=== PATIENT | male | born 1945 | race Caucasian/White ===

== ENCOUNTER 2021-11-13 03:44 | Day surgery (SDC) | payer MEDICARE, BC, SELFPAY ==
[2021-11-13] VITALS (26 sets, daily range): BP systolic 100–205; BP diastolic 67–106; PULSE 59–72; RESP 8–24; TEMP 36.1–36.7; O2SAT 92–100; BMI 28.0
[2021-11-13] MEDS: Normal Saline 1,000 ML 125 ML IV (03:45)
--- NOTE | 2021-11-13 03:45 | RT.EKG_ITS ---
APPROVED REPORT Exam: Resting ECG Reason for Exam: chest pain Patient Location: E HR:72 bpm ECG Measurements Heart Rate 72 AXIS RI 173 P 37 QRSd 99 QRS -74 QT 418 T 31 QTc 457 Conclusion Sinus rhythm Left anterior fascicular block.
--- NOTE | 2021-11-13 03:45 | DI.CT_ITS ---
Exam(s) CT ABDOMEN PELVIS W EXAM: CT ABDOMEN PELVIS W CLINICAL HISTORY: RUQ pain, nausea. TECHNIQUE: Imaging Protocol: Axial computed tomography images with coronal and sagittal reformatted images were created and reviewed CONTRAST MATERIAL: Intravenous: Omnipaque 100cc Oral: None COMPARISON: No exams were available for comparison FINDINGS: VISUALIZED LUNG BASES: No nodules nor pleural effusions evident. ABDOMEN: There is no ascites. LIVER: Mild steatosis. Some fatty parenchymal sparing around the gallbladder bed. GALLBLADDER/BILIARY: There is cholelithiasis. There is at least 1 2 centimeter gallstone. Mild gall bladder wall edema. No pericholecystic fluid. CBD is not dilated no dilated intrahepatic ducts. PANCREAS: No evidence of pancreatic mass nor dilatation of the pancreatic duct. SPLEEN: Spleen is not enlarged. No obvious intrasplenic lesions. Splenic and portal veins are paten t. ADRENALS: There is a small nodule in the right adrenal gland which measures 6 x 6 millimeters. Proba power incidental adenoma. Left adrenal gland unremarkable. KIDNEYS:Right kidney unremarkable. There is a small cyst in the lateral cortex of the left kidney me asuring 9 x 8 millimeters. No solid renal masses. No calculi nor hydronephrosis.. ABDOMINAL AORTA: Abdominal aorta is not enlarged. LYMPH NODES:There is no retroperitoneal nor paraaortic adenopathy. ABDOMINAL WALL: No evidence of significant anterior abdominal wall nor inguinal hernia. GI: There is no evidence of bowel obstruction, free air, nor abscess. PELVIS: GI: No evidence of appendicitis.There is sigmoid diverticulosis without evidence of obvious acute div erticulitis. LYMPH NODES: There is no intrapelvic nor inguinal adenopathy. REPRODUCTIVE: Prostate gland is enlarged and lobulated with small internal calcifications. Prostate gland significantly impresses and/or invades the bladder base. The urinary bladder is not overly dis tended. URINARY BLADDER: Borderline wall thickening. Impression upon and/or invasion of the base of the blad aleksandar by are grossly enlarged prostate gland. OSSEOUS: No significant osseous lesions. IMPRESSION: 1. Cholelithiasis. There is at least 1 large 2 cm gallstone. Borderline wall thickening. CBD and i ntrahepatic ducts are not dilated. Recommend follow-up ultrasound. 2. Grossly enlarged prostate gland with heterogeneous enhancement and faint internal calcifications. This enlarged prostate gland cyst is lobulated and impresses upon/or invades base of the bladder. 3. Small right adrenal nodule with measurements as above. This is probably an incidental adenoma. L eft adrenal gland unremarkable. 4. Single small benign cyst in the left kidney. RADIATION DOSE DELIVERED: 946.97mGy.cm Total DLP DATA REPOSITORY: All CT scans at this facility are submitted to the National Radiology Data Registry (NRDR) Dose Index Registry (DIR) with the [employer] ([employer]). RADIATION OPTIMIZATION: All CT scans at this facility use at least one of these dose optimization te chniques: automated exposure control; mA and/or kV adjustment per patient size (includes targeted exa ms where dose is matched to clinical indication); or iterative reconstruction.
--- NOTE | 2021-11-13 04:07 | ED.GENADUL_ITS ---
Discharge Plan Disposition Patient Disposition: [facility] INPATIENT Condition: Stable Discharge Details Clinical Impression: Acute cholecystitis Attending Provider: Cortney Flores Primary Care Provider: Unknown,Unknown Discharge Data Discharge Date/Time-TO BE ENTERED AT DEPARTURE: 11/13/21 09:15 Medical Decision Making 76-year-old male presents from home with complaint of 4 to 5 hours of right upper quadrant abdominal pain that radiates to his back. Previous episodes month both occurred after eating [place] food. States she had one episode of emesis at home. He has otherwise been well. He has not been immunized against COVID-19, stating I do not believe in it. Patient arrives afebrile, and pain with hypertension. Differential diagnosis includes biliary colic, pancreatitis, choledocholithiasis. Pt had IV esta blished, screening labs obtained and given parenteral fluids, antiemetic, analgesia. Laboratories note a white count of 11, hematocrit 47, platelets 428. Electrolytes unremarkable. AST 13, ALT 19, total bili 0.3. Lipase is 92. CT formal read is pending. There is evidence of large gallstone and ultrasound has been ordered. Case will be signed out to Dr. Alvarez pending review of the patient's imaging studies. 11/13/21 Dr. Alvarez 0730 --please see Dr. Mccarthy's note for initial presentation, exam and plan. Case endorsed to follow-up on ultrasound results and final disposition. Patient assessed by me at bedside. He endorses pain after midnight after eating [place] food last night. Similar episode of pain last week after eating. Patient appears uncomfortable but nontoxic. He has significant tenderness in the right upper quadrant. There is no rigidity or guarding. Labs reviewed. White blood cell count 11 with left shift. Normal electrolytes. Lipase normal. Urinalysis no evidence of infection. CT notes cholelithiasis with pericholecystic fluid suggestive of acute cholecystitis. Ultrasound completed and appears consistent with acute cholecystitis. Case discussed with Dr. Flores who will plan to take patient to the OR. A dose of Rocephin and Flagyl ordered. Plan discussed with patient and he is agreeable. Medical Records Medical records reviewed: Yes I reviewed the patient's medical records. Imaging Data Radiologic Study: Radiologist's impression: ?CT ABDOMEN ? PELVIS W CLINICAL HISTORY: ? RUQ pain, nausea. ? TECHNIQUE:? Imaging Protocol: Axial computed tomography images with coronal and sagittal reformatted images were created and reviewed CONTRAST MATERIAL:? Intravenous: Omnipaque 100cc Oral: None COMPARISON:? No exams were available for comparison FINDINGS: VISUALIZED LUNG BASES: No nodules nor pleural effusions evident.? ABDOMEN: There is no ascites. LIVER: Mild steatosis.? Some fatty parenchymal sparing around the gallbladder bed.? GALLBLADDER/BILIARY: There is cholelithiasis.? There is at least 1 2 centimeter gallstone.? Mild gallbladder wall edema.? No pericholecystic fluid.? CBD is not dilated no dilated intrahepatic ducts. PANCREAS: No evidence of pancreatic mass nor dilatation of the pancreatic duct.? SPLEEN: Spleen is not enlarged.? No obvious intrasplenic lesions.? Splenic and portal veins are patent. ADRENALS: There is a small nodule in the right adrenal gland which measures 6 x 6 millimeters.? Probably incidental adenoma.? Left adrenal gland unremarkable. KIDNEYS:Right kidney unremarkable.? There is a small cyst in the lateral cortex of the left kidney measuring 9 x 8 millimeters.? No solid renal masses.? No calculi nor hydronephrosis.. ABDOMINAL AORTA: Abdominal aorta is not enlarged. LYMPH NODES:There is no retroperitoneal nor paraaortic adenopathy. ABDOMINAL WALL: No evidence of significant anterior abdominal wall nor inguinal hernia. GI: There is no evidence of bowel obstruction, free air, nor abscess. PELVIS:? GI: No evidence of appendicitis.There is sigmoid diverticulosis without evidence of obvious acute diverticulitis. LYMPH NODES: There is no intrapelvic nor inguinal adenopathy. REPRODUCTIVE: Prostate gland is enlarged and lobulated with small internal calcifications.? Prostate gland significantly impresses and/or invades the bladder base.? The urinary bladder is not overly distended. URINARY BLADDER: Borderline wall thickening.? Impression upon and/or invasion of the base of the bladder by are grossly enlarged prostate gland. OSSEOUS: No significant osseous lesions. IMPRESSION: 1. Cholelithiasis.? There is at least 1 large 2 cm gallstone.? Borderline wall thickening.? CBD and intrahepatic ducts are not dilated.? Recommend follow-up ultrasound. 2. Grossly enlarged prostate gland with heterogeneous enhancement and faint internal calcifications.? This enlarged prostate gland cyst is lobulated and impresses upon/or invades base of the bladder. 3. Small right adrenal nodule with measurements as above.? This is probably an incidental adenoma.? Left adrenal gland unremarkable. 4. Single small benign cyst in the left kidney. Lab Data Lab results reviewed: Yes I reviewed the patient's lab results. Labs: Laboratory Tests Range/Units 11/13/21 11/13/21 11/13/21 04:00 04:06 04:06 WBC (4.4-10.8) 10^3/uL 11.23 H RBC (4.36-5.78) 10^6/uL 4.89 Hgb (13.5-17.5) g/dL 15.3 Hct (40.0-50.0) % 47.7 MCV (80-95) fL 97.5 H MCH (27.0-33.0) pg 31.3 MCHC (32.0-36.0) % 32.1 RDW (11.8-14.1) % 12.7 Plt Count (130-400) 10^3/uL 428 H MPV (8.0-11.0) fL 9.3 Immature Gran % 1.0 Neutrophils % 78.7 Lymphocytes % 11.3 Monocytes % 7.7 Eosinophils % 1.0 Basophils % 0.3 Nucleated RBC % % 0 Absolute Neutrophils (1.2-6.7) 10^3/uL 8.84 H Absolute Lymphocytes (1.2-3.4) 10^3/uL 1.27 Absolute Monocytes (0.1-0.8) 10^3/uL 0.86 H Absolute Eosinophils (0.0-0.7) 10^3/uL 0.11 Absolute Basophils (0.0-0.2) 10^3/uL 0.03 Sodium (136-145) mmol/L 140 Potassium (3.5-5.1) mmol/L 4.1 Chloride (98-107) mmol/L 103 Carbon Dioxide (21.0-32.0) mmol/L 29.3 Anion Gap (3-11) mmol/L 7.7 BUN (7-18) mg/dL 12 Creatinine (0.70-1.30) mg/dL 1.0 Estimated GFR/1.73 m2 (mL/min/1.73m2) >= 60.00 Glucose (74-106) mg/dL 167 H Calcium (8.5-10.1) mg/dL 8.6 Magnesium (1.8-2.4) mg/dL 2.3 Total Bilirubin (0.2-1.0) mg/dL 0.3 AST (15-37) U/L 13 L ALT (16-63) U/L 19 Alkaline Phosphatase (46-116) U/L 75 Troponin I (<or=60) ng/L < 50 Total Protein (6.4-8.2) g/dL 7.6 Albumin (3.4-5.0) g/dL 3.9 Lipase (73-393) U/L 92 Urine Color (Yellow) Yellow Urine Clarity (Clear) Cloudy Urine pH (5-8) 8.5 H Ur Specific [place] (1.005-1.025) 1.020 Urine Protein (Negative) mg/dL Negative Urine Ketones (Negative) mg/dL Negative Urine Blood (Negative) Negative Urine Nitrite (Negative) Negative Urine Bilirubin (Negative) Negative Urine Urobilinogen (Up TO 0.2) EU/dL 0.2 Ur Leukocyte Esterase (Negative) Negative Urine Glucose (Negative) mg/dL 100 COVID-19 Source SARS-CoV-2 (PCR) (Negative) Range/Units 11/13/21 09:40 WBC (4.4-10.8) 10^3/uL RBC (4.36-5.78) 10^6/uL Hgb (13.5-17.5) g/dL Hct (40.0-50.0) % MCV (80-95) fL MCH (27.0-33.0) pg MCHC (32.0-36.0) % RDW (11.8-14.1) % Plt Count (130-400) 10^3/uL MPV (8.0-11.0) fL Immature Gran % Neutrophils % Lymphocytes % Monocytes % Eosinophils % Basophils % Nucleated RBC % % Absolute Neutrophils (1.2-6.7) 10^3/uL Absolute Lymphocytes (1.2-3.4) 10^3/uL Absolute Monocytes (0.1-0.8) 10^3/uL Absolute Eosinophils (0.0-0.7) 10^3/uL Absolute Basophils (0.0-0.2) 10^3/uL Sodium (136-145) mmol/L Potassium (3.5-5.1) mmol/L Chloride (98-107) mmol/L Carbon Dioxide (21.0-32.0) mmol/L Anion Gap (3-11) mmol/L BUN (7-18) mg/dL Creatinine (0.70-1.30) mg/dL Estimated GFR/1.73 m2 (mL/min/1.73m2) Glucose (74-106) mg/dL Calcium (8.5-10.1) mg/dL Magnesium (1.8-2.4) mg/dL Total Bilirubin (0.2-1.0) mg/dL AST (15-37) U/L ALT (16-63) U/L Alkaline Phosphatase (46-116) U/L Troponin I (<or=60) ng/L Total Protein (6.4-8.2) g/dL Albumin (3.4-5.0) g/dL Lipase (73-393) U/L Urine Color (Yellow) Urine Clarity (Clear) Urine pH (5-8) Ur Specific [place] (1.005-1.025) Urine Protein (Negative) mg/dL Urine Ketones (Negative) mg/dL Urine Blood (Negative) Urine Nitrite (Negative) Urine Bilirubin (Negative) Urine Urobilinogen (Up TO 0.2) EU/dL Ur Leukocyte Esterase (Negative) Urine Glucose (Negative) mg/dL COVID-19 Source Nasal/Nares SARS-CoV-2 (PCR) (Negative) Negative HPI General Mode of arrival: ambulatory . Date/Time Provider Initiated Documentation: 11/13/21 03:45 . Limitations to Documentation: no limitations . Information obtained by: patient . History of Present Illness 76 year old M p resents to the emergency department with the chief complaint of Right upper quadrant pain began a few hours after eating, described as severe and similar to prior episodes, Quality is described as constant, and is localized to the abdomen. Patient reports radiation to back. Patient started experiencing this hour(s) and it has been constant. improves with No relieving factors improve symptom(s), No exacerbating factors reported . Patient notes fever/chills, loss of appetite and nausea/vomiting; denies chest pain, cough and shortness of breath. Patient did receive the following treatments prior to arrival, none Related Data Home Medications Medication Instructions Recorded Confirmed multivitamin 1 tab PO DAILY 11/13/21 11/13/21 Allergies Allergy/AdvReac Type Severity Reaction Status Date / Time No Known Allergies Allergy Unverified 11/13/21 09:24 General Stated Complaint: Abd Prob SARAH: 3 Review of Systems Narrative: No recent illness. Not immunized against COVID-19. 8 systems were reviewed and otherwise negative. PFSH All Active Problems Acute cholecystitis (Acute) Medical History No significant past medical history Surgical History Lipoma Resection L chest Social History Smoking/Tobacco Use Status: Never Smoking risk assessment performed?: Yes Alcohol Intake: current Alcohol Intake frequency: 0-2 drinks per day Alcohol type: beer Drug use: Never Substance use type: does not use Do you feel safe at home: Yes Exam Narrative Exam Narrative: GEN: awake, alert, oriented 3. Pleasant, well groomed, interactive. HEAD: Normocephalic, atraumatic ENT: Mucous membranes moist, oropharynx unremarkable, External ear exam un remarkable EYES: PERRL, EOMI NECK: Full ROM, no LONA, no menigismus CHEST/RESP: Nontender, clear to auscultation bilateral, no wheeze/rhonchi/rales CARDIOVASCULAR: RRR, no murmur, rub juan. 2+ Rad pulse bilateral ABDOMEN: Soft, tender in the right upper quadrant, no mass. +Bowel sounds EXT: Full ROM, no edema, no rash Neuro: Grossly normal neurologic exam, conversant, interactive. Psych: Speech fluent, thoughts congruent, affect normal Course Vital Signs Vital signs: Vital Signs Temperature 36.7 C 11/13/21 03:47 Pulse 70 11/13/21 03:47 Respiratory Rate 22 11/13/21 03:47 Blood Pressure 205/106 H 11/13/21 03:47 Pulse Oximetry 100 11/13/21 03:47 Temperature 36.7 C 11/13/21 03:47 Temperature Source Skin 11/13/21 03:47 Pulse 70 11/13/21 03:47 Respiratory Rate 22 11/13/21 03:47 Respiratory Effort 11/13/21 03:51 Blood Pressure 205/106 H 11/13/21 03:47 Blood Pressure Position Supine 11/13/21 03:47 Pulse Oximetry 100 11/13/21 03:47 Oxygen Delivery Method Room Air 11/13/21 03:47 Oxygen Flow Rate 0 11/13/21 03:47 Pain Level 6 11/13/21 03:47 Sign Out Sign Out Data: Sign Out Comment: RUQ pain, CT/US pending Last updated by Isael Mccarthy MD at 11/13/21 06:42
[2021-11-13] MEDS: Ondansetron 4 MG/2 ML VIAL IVP ×2 (04:10→11:27)
[2021-11-13] MEDS: HYDROmorphone 2 MG/ML VIAL 1 MG IVP (04:12)
[2021-11-13 04:23] LABS: Abs Immature Grans 0.11 10^3/uL (0.0-0.06); Absolute Basophil Count 0.03 10^3/uL (0.0-0.2); Absolute Eosinophil Count 0.11 10^3/uL (0.0-0.7); Absolute Lymphocyte Count 1.27 10^3/uL (1.2-3.4); Absolute Monocyte Count 0.86 10^3/uL (0.1-0.8); Basophils % 0.3; HCT 47.7 % (40.0-50.0); HGB 15.3 g/dL (13.5-17.5); Lymphocytes % 11.3; MCH 31.3 pg (27.0-33.0); MCHC 32.1 % (32.0-36.0); MCV 97.5 fL (80-95); MPV 9.3 fL (8.0-11.0); Monocytes % 7.7; Neutrophils % 78.7; Nucleated RBC 0 %; Platelet Count 428 10^3/uL (130-400); RBC 4.89 10^6/uL (4.36-5.78); RDW 12.7 % (11.8-14.1); RDW-SD 45.7 fL; WBC 11.23 10^3/uL (4.4-10.8)
[2021-11-13 04:37] LABS: Absolute Neutrophil Count 8.84 10^3/uL (1.2-6.7)
[2021-11-13 04:38] LABS: Bilirubin Negative (Negative); Blood Negative (Negative); Clarity Cloudy (Clear); Glucose 100 mg/dL (Negative); Ketones Negative (Negative); Leukocyte Esterase Negative (Negative); Nitrite Negative (Negative); Urobilinogen 0.2 EU/dL (Up TO 0.2); pH 8.5 (5-8)
[2021-11-13 04:56] LABS: ALT 19 U/L (16-63); AST 13 U/L (15-37); Albumin 3.9 g/dL (3.4-5.0); Alkaline Phosphatase 75 U/L (46-116); Anion Gap 7.7 mmol/L (3-11); BUN 12 mg/dL (7-18); Bilirubin, Total 0.3 mg/dL (0.2-1.0); CO2 29.3 mmol/L (21.0-32.0); Calcium 8.6 mg/dL (8.5-10.1); Chloride 103 mmol/L (98-107); Glucose 167 mg/dL (74-106); Lipase 92 U/L (73-393); Magnesium 2.3 mg/dL (1.8-2.4); Potassium 4.1 mmol/L (3.5-5.1); Sodium 140 mmol/L (136-145); Total Protein 7.6 g/dL (6.4-8.2); Troponin I < 50 ng/L (<or=60)
--- NOTE | 2021-11-13 05:45 | DI.US_ITS ---
Exam(s) US ABDOMEN LIMITED EXAM: US ABDOMEN LIMITED CLINICAL HISTORY: RUQ pain, gallstone TECHNIQUE: Ultrasound abdomen performed using standard protocol. COMPARISON: CT CT ABDOMEN PELVIS W from 11/13/2021 FINDINGS: There is no ascites evident. LIVER: There is hyperechoic indicating steatosis. There are no discrete focal lesions. No obvious d ilated intrahepatic ducts. GALLBLADDER/BILIARY: Cholelithiasis. There is a large gallstone lodged in the gallbladder neck and t here is some wall edema, findings consistent with acute cholecystitis. The common hepatic duct isnot dilated, measuring 4mm at the level of subhash hepatis. PANCREAS: There is no evidence of pancreatic mass nor dilatation of the pancreatic duct. RIGHT KIDNEY:No evidence of solid mass, calculus, nor hydronephrosis. No cortical cysts evident. IMPRESSION: 1. Cholelithiasis and evidence of acute cholecystitis. CBD is not dilated. 2. Hepatic steatosis. No discrete focal hepatic lesions. 3. There is no ascites. DATA REPOSITORY:
[2021-11-13] MEDS: HYDROmorphone 2 MG/ML VIAL 0.5 MG IVP ×3 (06:10→11:27)
--- NOTE | 2021-11-13 07:07 | DI.VRAD_ITS ---
PROCEDURE INFORMATION: Exam: CT Abdomen And Pelvis With Contrast Exam date and time: 11/13/2021 5:46 AM Age: 76 years old Clinical indication: Nausea and vomiting; Abdominal pain; Localized; Right upper quadrant (ruq); Additional info: Ruq pain, nausea and emesis TECHNIQUE: Imaging protocol: Computed tomography of the abdomen and pelvis with contrast. Radiation optimization: All CT scans at this facility use at least one of these dose optimization techniques: automated exposure control; mA and/or kV adjustment per patient size (includes targeted exams where dose is matched to clinical indication); or iterative reconstruction. Contrast material: OMNI 350; Contrast volume: 100 ml; Contrast route: INTRAVENOUS (IV); COMPARISON: No relevant prior studies available. FINDINGS: Lungs: Mild dependent basilar atelectasis. Pleural spaces: Chronic appearing basilar pleural and parenchymal changes. Mediastinal space: Patulous distal esophagus. Liver: Hepatomegaly. Fatty Infiltration. Gallbladder and bile ducts: Cholelithiasis within a mildly distended gallbladder with borderline wall thickening and suspected pericholecystic fluid suggesting acute cholecystitis. Nuclear medicine HIDA scan and/or gallbladder ultrasound may be of benefit in evaluation if indicated. Pancreas: No enlargement. No mass. No ductal dilatation. Spleen: Normal size. No mass. Adrenal glands: No significant mass. No enlargement. No hemorrhage. Subcentimeter left renal cyst, benign features, requires no further evaluation. Kidneys and ureters: No mass. No hydronephrosis. No hydroureter or ureterolithiasis. Stomach and bowel: Moderate to advanced diverticulosis without acute diverticulitis. No colitis. Mild fecal load proximally. Fluid-filled mildly distended stomach without wall thickening or obvious outlet obstruction, recent ingestion versus gastroparesis. Small bowel normal caliber without mechanical obstruction, pneumatosis or free air. Appendix: Normal appearance without acute inflammation. Intraperitoneal space: No significant free fluid. No free intraperitoneal air. Vasculature: Aorta normal caliber without aneurysm. Aortic atherosclerotic calcification. Lymph nodes: No significant lymphadenopathy demonstrated. Urinary bladder: Borderline bladder wall thickening. Impression upon and/or invasion of the base of the bladder by a grossly enlarged prostate. Reproductive: Grossly enlarged prostate with slightly heterogeneous enhancement and faint internal calcifications. Impression upon and/or invasion base of the bladder. Bones/joints: Mild degenerative changes noted throughout the spine. No fracture or subluxation. No lytic or blastic lesion. Soft tissues: Small uncomplicated fat containing umbilical hernia. Uncomplicated fat containing inguinal hernias, right larger than left. IMPRESSION: 1. Cholelithiasis within a mildly distended gallbladder with borderline wall thickening and suspected pericholecystic fluid suggesting acute cholecystitis. Nuclear medicine HIDA scan and/or gallbladder ultrasound may be of benefit in evaluation if indicated. 2. Fluid-filled distended stomach without wall thickening or outlet obstruction. Recent ingestion versus gastroparesis. 3. Grossly enlarged prostate with slightly heterogeneous enhancement and faint internal calcifications. Impression upon and/or invasion base of the bladder. 4. Nonemergent findings as described above. Dictated and Authenticated by: Jose Sutton MD. Ordering:BUDDY Kirkland MD
[2021-11-13] MEDS: cefTRIAXone 1 GM/50 ML BAG IVPB (08:07)
[2021-11-13] MEDS: metroNIDAZOLE 500 MG/100 ML BAG 100 MG IVPB (08:42)
[2021-11-13 09:48] LABS: Source Nasal/Nares
[2021-11-13] MEDS: Normal Saline 1,000 ML 75 ML IV (10:06)
--- NOTE | 2021-11-13 10:18 | ANES.PREOP_ITS ---
General Info Date of Service Date Performed: 11/13/21 Height: 5 ft 9 in Weight: 86.183 kg Body Mass Index (BMI): 28.0 Surgical Procedure: Operation Date: 11/13/21 12:25 Proposed Procedure Side Surgeon p Cholecystectomy Laparoscopic Cortney Flores DO Meds Allergies and Home Medications Allergies Allergy/AdvReac Type Severity Reaction Status Date / Time No Known Allergies Allergy Unverified 11/13/21 09:24 Home Medication Medication Instructions Recorded multivitamin 1 tab PO DAILY 11/13/21 Current Visit Medications: Current Medications Generic Name Dose Route Start Last Admin Trade Name Freq PRN Reason Stop Dose Admin Enoxaparin Sodium 40 mg 11/13/21 09:00 Enoxaparin 40 Mg/0.4 Ml Syr SC Q24H ELIZABETH Sodium Chloride 1,000 mls @ 125 mls/hr 11/13/21 04:00 11/13/21 06:49 Saline 1000ml Bag IV 0 mls/hr INFUSION ELIZABETH Infusion Sodium Chloride 500 mls @ 0 mls/hr 11/13/21 08:25 Saline 500ml Bag IV PRN PRN As Directed Sodium Chloride 1,000 mls @ 75 mls/hr 11/13/21 08:30 11/13/21 10:06 Saline 1000ml Bag IV 75 mls/hr INFUSION ELIZABETH Administration Acetaminophen 1,000 mg in 100 mls @ 400 mls/hr 11/13/21 08:25 Ofirmev IVPB Q8H PRN PRN IV Miscellaneous Supplies 1 each 11/13/21 04:00 Iv Access IV DIRECTED [facility] IV Miscellaneous Supplies 1 each 11/13/21 08:30 Iv Access IV DIRECTED ELIZABETH Morphine Sulfate 2 mg 11/13/21 08:25 Morphine 2 Mg/Ml Syr IVP Q1H PRN PRN Ondansetron HCl 4 mg 11/13/21 08:25 Ondansetron 4 Mg/2 Ml Vial IVP Q4H PRN PRN Sodium Chloride 0 ml 11/13/21 03:51 Normal Saline Flush 10 Ml Syr IVP PRN PRN Sodium Chloride 0 ml 11/13/21 08:25 Normal Saline Flush 10 Ml Syr IVP PRN PRN PFSH Active Problems Active Problems: Problem Status Onset Code Acute cholecystitis K81.0 Medical History Medical History No significant past medical history Surgical History Surgical History Lipoma Resection L chest Tobacco Smoking/Tobacco Use Status: Never Alcohol Alcohol Intake: current Alcohol intake frequency: 0-2 drinks per day Alcohol type: beer Substance Use Substance use: Never Substance use type: does not use Vital Signs and Lab Results Vital Signs Most Recent Vital Signs in EMR: Most Recent Vital Signs Temp Pulse Resp BP Pulse Ox 36.4 C L 72 18 117/89 95 11/13/21 09:26 11/13/21 09:26 11/13/21 09:26 11/13/21 09:26 11/13/21 09:26 Lab Results Result Diagrams: 11/13/21 04:06 11/13/21 04:06 Blood Type / Crossmatch: No Data to Display Complete Blood Count: White Blood Count 11.23 10^3/uL (4.4-10.8) H 11/13/21 04:06 11/13/21 Red Blood Count 4.89 10^6/uL (4.36-5.78) 11/13/21 04:06 11/13/21 Hemoglobin 15.3 g/dL (13.5-17.5) 11/13/21 04:06 11/13/21 Hematocrit 47.7 % (40.0-50.0) 11/13/21 04:06 11/13/21 Platelet Count 428 10^3/uL (130-400) H 11/13/21 04:06 11/13/21 Complete Metabolic Panel: Sodium Level 140 mmol/L (136-145) 11/13/21 04:06 11/13/21 Potassium Level 4.1 mmol/L (3.5-5.1) 11/13/21 04:06 11/13/21 Chloride Level 103 mmol/L (98-107) 11/13/21 04:06 11/13/21 Carbon Dioxide Level 29.3 mmol/L (21.0-32.0) 11/13/21 04:06 11/13/21 Blood Urea Nitrogen 12 mg/dL (7-18) 11/13/21 04:06 11/13/21 Creatinine 1.0 mg/dL (0.70-1.30) 11/13/21 04:06 11/13/21 Estimated GFR/1.73 m2 >= 60.00 (mL/min/1.73m2) 11/13/21 04:06 11/13/21 Magnesium Level 2.3 mg/dL (1.8-2.4) 11/13/21 04:06 11/13/21 Calcium Level 8.6 mg/dL (8.5-10.1) 11/13/21 04:06 11/13/21 Albumin 3.9 g/dL (3.4-5.0) 11/13/21 04:06 11/13/21 Glucose Level 167 mg/dL (74-106) H 11/13/21 04:06 11/13/21 Liver Function Panel: Alanine Aminotransferase (ALT/SGPT) 19 U/L (16-63) 11/13/21 04:06 11/13/21 Aspartate Amino Transf (AST/SGOT) 13 U/L (15-37) L 11/13/21 04:06 11/13/21 Coagulation Panel: No Data to Display Cardiac Panel: Troponin I < 50 ng/L (<or=60) 11/13/21 Arterial Blood Gas: No Data to Display Venous Blood Gas: No Data to Display Pancreas Panel: Lipase 92 U/L (73-393) 11/13/21 04:06 11/13/21 Thyroid Panel: No Data to Display Infectious Disease: Coronavirus (COVID-19)(PCR) Pending 11/13/21 09:40 11/13/21 Coronavirus 2019 Source Nasal/Nares 11/13/21 09:40 11/13/21 Blood Cultures: No Data to Display Toxicology Panel: No Data to Display Anesthesia Assessment and Plan Anesthesia History Personal History: No History of Anesthesia Complications Family History: No Family History of Anesthesia Complications Exercise Tolerance Exercise Tolerance: Metabolic Equivalents>4 Cardiac & Pulmonary Exam Cardiac Exam: Normal S1/S2 Heart Sounds Pulmonary Exam: Clear Bilateral Breath Sounds Implantable Cardiac Device Does patient have a Pacemaker or an ICD?: No Airway Exam Known Difficult Airway: No Mallampati Class: 2 Mouth Opening: Normal (> 3cm) Thyromental Distance: Greater than 3 cm Neck Range of Motion: Full ROM Neck Circumference: Normal Teeth Condition: Normal Dentition ASA Classification ASA Score: ASA 2 Emergency Case?: No NPO Status NPO Status: NPO Clears >2 hours, Solids >8 hours Anesthesia Plan Resuscitation Status: Full Code Anesthesia Technique: General Anesthesia Airway Planned: Endotracheal Tube Monitors Used: Standard Monitors
[2021-11-13 10:29] LABS: COVID-19 PCR Negative (Negative)
--- NOTE | 2021-11-13 11:03 | W.PM.HP.N ---
Date of service: 11/13/21 Time of Service: 10:00 Assessment and Plan Assessment and plan (1) Acute cholecystitis: Status: Acute Assessment and plan: -IV Rocephin and Flagyl given by ER -After discussing all risks, benefits and alternatives informed consent was obtained for laparoscopic possible open cholecystectomy today in the operating room. -Further disposition to be determined post operatively. History of Present Illness Consults Consult date: 11/13/21 Requesting physician: Lydia Alvarez Narrative: 76 year old male who developed abdominal pain after eating marshallese food last night for dinner. He reports similar discomfort last week after eating nachos. Denies any fevers or chills, last BM overnight, +nausea/vomiting. Basic labs and CT done in the ER revealed distended gallbladder with pericholecystic fluid. Follow up ultrasound done revealed large gallstone in neck of gallbladder with pericholecystic fluid and normal CBD size. I was asked to see the patient for the above. Review of Systems Constitutional Constitutional: Reports as per HPI and Reports system reviewed and no additional complaints, except as documented ENT Ears, Nose, Mouth, and Throat: Denies dizziness Cardiovascular Cardiovascular: Denies chest pain, Denies syncope, Denies rapid heart rate, Denies lightheadedness and Denies dyspnea Respiratory Respiratory: Denies dyspnea Gastrointestinal Gastrointestinal: Reports abdominal pain, Reports bloating, Denies constipation, Denies diarrhea, Reports nausea and Reports vomiting Neurologic Neurologic: Denies confusion, Denies dizziness and Denies syncope Psychiatric Psychiatric: Denies confusion PFSH All Active Problems Acute cholecystitis (Acute) Medical History No significant past medical history Surgical History Lipoma Resection L chest Social History Smoking/Tobacco Use Status: Never Smoking risk assessment performed?: Yes Alcohol Intake: current Alcohol Intake frequency: 0-2 drinks per day Alcohol type: beer Drug use: Never Substance use type: does not use Do you feel safe at home: Yes Meds Allergies and Home Medications Allergies Allergy/AdvReac Type Severity Reaction Status Date / Time No Known Allergies Allergy Unverified 11/13/21 09:24 Home Medications Medication Instructions Recorded Confirmed Type multivitamin 1 tab PO DAILY 11/13/21 11/13/21 History Exam Const General: cooperative, healthy appearing, comfortable and no acute distress Nutritional Appearance: average body habitus Resp Effort & Inspection: normal respiratory effort, able to speak in complete sentences, no cough and no respiratory distress Cardio Rate: regular rate Rhythm: regular rhythm GI Inspection: normal to inspection and non-distended Palpation: soft, not firm and tender in the epigastrum, in the RUQ and Mensah's sign positive Skin General skin exam: no rashes or lesions noted Neuro General: patient alert, patient awake and patient oriented x3 Results Labs Result diagrams: 11/13/21 04:06 11/13/21 04:06 Labs: Laboratory Results - last 24 hr 11/13/21 11/13/21 11/13/21 04:00 04:06 04:06 WBC 11.23 H RBC 4.89 Hgb 15.3 Hct 47.7 MCV 97.5 H MCH 31.3 MCHC 32.1 RDW 12.7 Plt Count 428 H MPV 9.3 Immature Gran % 1.0 Neutrophils % 78.7 Lymphocytes % 11.3 Monocytes % 7.7 Eosinophils % 1.0 Basophils % 0.3 Nucleated RBC % 0 Absolute Neutrophils 8.84 H Absolute Lymphocytes 1.27 Absolute Monocytes 0.86 H Absolute Eosinophils 0.11 Absolute Basophils 0.03 Sodium 140 Potassium 4.1 Chloride 103 Carbon Dioxide 29.3 Anion Gap 7.7 BUN 12 Creatinine 1.0 Estimated GFR/1.73 m2 >= 60.00 Glucose 167 H Calcium 8.6 Magnesium 2.3 Total Bilirubin 0.3 AST 13 L ALT 19 Alkaline Phosphatase 75 Troponin I < 50 Total Protein 7.6 Albumin 3.9 Lipase 92 Urine Color Yellow Urine Clarity Cloudy Urine pH 8.5 H Ur Specific Ceiba 1.020 Urine Protein Negative Urine Ketones Negative Urine Blood Negative Urine Nitrite Negative Urine Bilirubin Negative Urine Urobilinogen 0.2 Ur Leukocyte Esterase Negative Urine Glucose 100 COVID-19 Source SARS-CoV-2 (PCR) 11/13/21 09:40 WBC RBC Hgb Hct MCV MCH MCHC RDW Plt Count MPV Immature Gran % Neutrophils % Lymphocytes % Monocytes % Eosinophils % Basophils % Nucleated RBC % Absolute Neutrophils Absolute Lymphocytes Absolute Monocytes Absolute Eosinophils Absolute Basophils Sodium Potassium Chloride Carbon Dioxide Anion Gap BUN Creatinine Estimated GFR/1.73 m2 Glucose Calcium Magnesium Total Bilirubin AST ALT Alkaline Phosphatase Troponin I Total Protein Albumin Lipase Urine Color Urine Clarity Urine pH Ur Specific Ceiba Urine Protein Urine Ketones Urine Blood Urine Nitrite Urine Bilirubin Urine Urobilinogen Ur Leukocyte Esterase Urine Glucose COVID-19 Source Nasal/Nares SARS-CoV-2 (PCR) Negative Last Vital Signs Temp 97.5 F L 11/13/21 09:26 Pulse 72 11/13/21 09:26 Resp 18 11/13/21 09:26 BP 117/89 11/13/21 09:26 Pulse Ox 95 11/13/21 09:26
[2021-11-13] MEDS: Bupivacaine LIPOSOME/PF 133 MG/10 ML VIAL IJ (13:20)
[2021-11-13] MEDS: Bupivacaine 0.25% Pres-Free 30 ML VIAL (13:20)
--- NOTE | 2021-11-13 13:44 | GB_PTH ---
PATIENT: Ganga Potts LOC: [facility] U#:[id number] AGE/SX: 76/M ROOM: RE11/13/[address]: Cortney Flores DO : 1945 BED: DIS: 11/13/2021 SPEC #: [id number] RECD: 11/13/21 15:16 STATUS: HYUN REQ #: [id number] CONNIE: 11/13/21 13:[address]: Cortney Flores DEPT: Surgical Specimen RECD BY: Dana Colbert ENTERED: 11/13/21 15:17 SP TYPE: GB OTHR DR: Unknown,Unknown Tissues: 1 - GALLBLADDER Procedures: GROSS AND MICRO LEVEL 3 Comments: [id number]
--- NOTE | 2021-11-13 14:44 | W.PM.OP ---
Date of service: 11/13/21 Time of Service: 13:50 Operative Note Operative Note DATE OF PROCEDURE: 11/13/21 PRE-OP DIAGNOSIS: acute cholecystitis POST-OP DIAGNOSIS: same PROCEDURE: laparoscopic cholecystectomy SURGEON: Cortney Flores FINISHING RANGE OPERATOR: Gerry Saucedo ANESTHESIA TYPE: Local By Surgeon and General LMA/ETT Refer to Anesthesia Record ESTIMATED BLOOD LOSS: 10 Patient was transported to: PACU Patient's condition: stable Implants: none Indications: Patient with severe intractable right upper quadrant pain and image proven evidence of acute cholecystitis with large gallstone Findings: Distended, edematous gallbladder with large gallstone within neck of gallbladder Procedure Description: Patient was taken to the operating room and placed on the operating room table in supine position. After time out procedure performed patient was provided with general anesthesia. He was prepped and draped in the usual surgical fashion. Local anesthesia was infiltrated into the subcutaneous tissues and using an 11 blade scalpel an incision was made in the supraumbilical tissue. Dissection was carried down through the subcutaneous tissues with bovie electrocautery. The fascia was grasped with a gustavo and incised using cautery. Once entry into the abdominal cavity was confirmed his abdomen was insufflated. Three 5mm ports were then placed under direct visualization along the right subcostal margin.The gallbladder was distended and difficult to grasp. A laparoscopic tenaculum was used to grasp the gallbladder which did cause it to spill some dark bile. Once the gallbladder was retracted, the common bile duct was dissected out. The cystic artery appeared to divide around the gallbladder. The duct was clipped and transected and the artery which was split into two separate vessels were also clipped and transected. The gallbladder was removed from the liver bed using electrocautery and subsequently placed into an endocatch bag. The perihepatic space was irrigated thoroughly and suctioned out until effluent became clear. The gallbladder was removed from the supraumbilical incision after lengthening the skin incision slightly to accommodate for the large 4cm gallstone. The fascia was closed in a figure of eight 0-vicryl stitch and skin closed with 4-0 monocryl. Skin glue was then placed over each incision. All needle sponge and instrument counts were correct x2 at the end of the procedure. The patient was subsequently awakened and transferred to PACU in stable condition.
[2021-11-13] MEDS: traMADol 50 MG TAB PO (15:47)
--- NOTE | 2021-11-13 15:47 | W.ANESPOSTOP ---
Postoperative Evaluation Date, Time and Location Date Performed: 11/13/21 Time Performed: 15:47 Patient Location: Day Surgery Unit Vital Signs Most Recent Imported Vital Signs: Most Recent Vital Signs Temp Pulse Resp BP Pulse Ox 36.5 C 67 15 125/72 94 11/13/21 14:55 11/13/21 14:55 11/13/21 14:55 11/13/21 14:55 11/13/21 14:55 Pain Score Most Recent Pain Score: Most Recent Pain Score Pain Level 6 11/13/21 03:47 Assessment Mental Status: Awake (Alert & Oriented to Patient Baseline) Airway and Respiratory Function: Patent airway with normal (patient baseline) respiratory exam Cardiovascular Function: Hemodynamically Stable Hydration Status: Adequately Hydrated Nausea & Vomiting: No Nausea or Vomiting Pain: Pain is tolerable per patient Peripheral Nerve Block: Patient did not receive a nerve block
--- NOTE | 2021-11-13 15:49 | W.PM.DSUDISC ---
Discharge Plan Disposition Patient Disposition: HOME Condition: Stable Discharge Details Attending Provider: Cortney Flores Primary Care Provider: Unknown,Unknown Home Meds and New Rx's Prescriptions: No Action multivitamin Tablet 1 tab PO DAILY 0RF Discharge Instructions Instructions: Laparoscopic Cholecystectomy (DC) Referrals: Yoana Ramos DO [OSTEOPATHIC DOCTOR] - Activity:: light activity x4 weeks Remove Dressings/Wound Care:: 24 hours Shower/Bathe:: 24 hours Diet:: low fat Discharge Orders Discharge Orders: Discharge Order (Routine); Ordered 11/13/21 Ordered By: Cortney Flores DS: Diagnosis Discharge Diagnosis (1) Acute cholecystitis: Status: Acute Asessment and Plan: S/P laparoscopic cholecystectomy, patient may be discharged home.
== END 2021-11-13 17:00 | disposition home or self-care (01) ==
LOC: ER 09:13 → SUR 09:22
PROVIDERS: Emergency Medicine; Emergency Provider Physician Assistant; Visit Provider Surgery
PROC: 0FT44ZZ Resection of Gallbladder, Percutaneous Endoscopic Approach (ICD-10-PCS; CPT 47562; principal; 2021-11-13 12:15)
DX: K80.00 Calculus of gallbladder with acute cholecystitis without obstruction (principal)
CPT/HCPCS: 47562; 36415; 80053; 83690; 87635; 93005; 96361; 96365; 96367; 96375; 96376; 99284; 99285; 74177; 76705; 81003; 83735; 84484; 85025; 88304; 93010; J0131; J0696; J1100; J1885; J2405

== ENCOUNTER → 2021-11-27 14:18 | Outpatient (BNVA) | payer MEDICARE, BC, SELFPAY | PROVIDERS: Visit Provider Physical Therapy Assistant | DX: Z48.815 Encounter for surgical aftercare following surgery on the digestive system (principal); Z90.49 Acquired absence of other specified parts of digestive tract ==

== ENCOUNTER 2022-12-12 13:18 | Emergency (ER) | payer OTHER, SELFPAY ==
[2022-12-12 13:28] VITALS: BP 163/103; PULSE 92; RESP 18; TEMP 36.1; O2SAT 98
--- NOTE | 2022-12-12 14:00 | RT.EKG_ITS ---
APPROVED REPORT Exam: Resting ECG Reason for Exam: chest pain, ? syncope Patient Location: E HR:80 bpm ECG Measurements Heart Rate 80 AXIS VA 161 P 48 QRSd 96 QRS -70 QT 386 T 25 QTc 446 Conclusion Sinus rhythm...normal P axis, V-rate 60- 99 Probable left atrial enlargement...P >50mS, <-0.10mV V1 Left anterior fascicular block...axis(240,-40), init forces inf
--- NOTE | 2022-12-12 14:47 | ED.GENADUL_ITS ---
Discharge Plan Disposition Patient Disposition: Home Condition: Good Discharge Details Clinical Impression: Multiple rib fractures Primary Care Provider: None,None ED Provider: Vikki Colon Home Meds and New Rx's Prescriptions: Continued multivitamin Tablet 1 tab PO DAILY lisinopril 5 mg tablet 10 mg PO DAILY Patient Comments: TAKE ONE TABLET BY MOUTH EVERY DAY FOR BLOOD PRESSURE Discharge Instructions Additional Instructions: Tylenol 650 mg every 6 hours and/or ibuprofen 400 mg every 6 hours as needed for pain. Ice 20 minutes on and 20 minutes off for the next 48 hours, then you may change to heat. Return to ED for fever of 100.4 or above, difficulty breathing, or any other concerns. Call the [facility] tomorrow for follow-up appointment for this week so that he can discuss refill of your cholesterol medicine, changing the lisinopril, and fracture follow-up. Use your incentive spirometer as instructed. Medical Decision Making Although patient likely hit his head last night when he fell, he does not want a head CT. We did discuss his age and several head injury decision rules but he again declines. I did update he and his daughter on his third, fifth, and possibly sixth rib fracture on the left-hand side. I discussed pain medication with the patient. He does not want anything stronger than Tylenol or ibuprofen which he will take at home. He will try ice and switch over to heat later on this week. He will call the [facility] tomorrow for a follow-up appointment for this week to discuss his rib fractures, statin refill, and lisinopril/cough. We will return for difficulty breathing, fever, or any other concerns. HPI General Date/Time Provider Initiated Documentation: 12/12/22 13:45 . HPI Narrative: Patient recalls going to go to sleep and then waking up this morning with the chest pain that radiates from his chest around laterally to his back. He noticed that his chair was tipped over in his bedroom and he presumes that he tripped over it. His daughter reports that he gets up frequently during the night to go to the bathroom. Patient has no recall. His head does not hurt. He has no difficulty breathing or abdominal pain. There is no hip pain. He has no pedal edema or calf pain. He denies any recent illness including fever, chills, or URI symptoms. He has a chronic cough that he attributes to lisinopril. He is supposed to be on a cholesterol medication but ran out. He states [facility] for [facility] on his cholesterol med and to discuss the cough from his lisinopril. Patient tells me his pain is sharp, sharp, and exacerbated by movement. It is not made worse with deep inspiration. It is made worse when he coughs. Related Data Home Medications Medication Instructions Recorded Confirmed multivitamin 1 tab PO DAILY 11/13/21 12/12/22 lisinopril 5 mg tablet 10 mg PO DAILY 12/12/22 12/12/22 Allergies Allergy/AdvReac Type Severity Reaction Status Date / Time No Known Allergies Allergy Unverified 12/12/22 13:35 General Stated Complaint: Chest/Rib SARAH: 3 Review of Systems Constitutional Constitutional: Denies chills, Denies fever(s), Denies headache(s) and Denies weakness Eyes Eyes: Denies diplopia and Reports other (no redness) ENT Ears, Nose, Mouth, and Throat: Denies otalgia, Denies headache(s), Denies nasal congestion, Denies nasal discharge, Denies neck pain and Denies sore throat Cardiovascular Cardiovascular: Reports chest pain, Denies palpitations and Denies dyspnea Respiratory Respiratory: Denies cough and Denies dyspnea Gastrointestinal Gastrointestinal: Denies abdominal pain, Denies diarrhea, Denies nausea and Denies vomiting Genitourinary Genitourinary: Denies difficulty urinating and Denies dysuria Musculoskeletal Musculoskeletal: Denies myalgias, Denies muscle weakness, Denies neck pain, Denies numbness and Reports other (edema) Comments: no pain except chest from fall Integumentary/Breasts Skin/Breast: Denies change in pigmentation and Denies rash Neurologic Neurologic: Denies headache(s), Denies numbness and Denies weakness Endocrine Endocrine: Denies palpitations PFSH All Active Problems (Updated 12/12/22 @ 15:47 by Vikki Colon MD) Multiple rib fractures (Acute) Acute cholecystitis (Acute) Medical History No significant past medical history Surgical History Lipoma Resection L chest Social History Smoking/Tobacco Use Status: Never Smoking risk assessment performed?: Yes Alcohol Intake: current Alcohol Intake frequency: 0-2 drinks per day Alcohol type: beer Drug use: Never Substance use type: does not use Do you feel safe at home: Yes Exam Const General: no acute distress, well developed, well groomed and not in acute distress Nutritional Appearance: well nourished Orientation: alert and oriented x3 HENMT Head: normal to inspection, no palpable skull fracture, normocephalic and atraumatic Ears: external ears normal Mouth: oropharynx normal and moist mucous membranes Throat: posterior oropharynx normal Eyes Conjunctivae: conjunctivae normal Neck Neck: full ROM, supple, no midline deformity and nontender Chest Chest: normal inspection of the chest and normal palpation of entire chest wall (With only mild left upper anterior TTP, no crepitus or step-offs) Resp Effort & Inspection: normal respiratory effort Auscultation: clear to auscultation bilaterally Cardio Rate: regular rate Rhythm: regular rhythm Heart Sounds: no murmurs and no rubs GI Inspection: normal to inspection Palpation: soft, nontender and other (non distended) Auscultation: normal bowel sounds Back/Spine/Pelvis Back: no CVA tenderness Cervical Spine: cervical ROM normal, No cervical muscular tenderness and No step off deformity Thoracic/Lumbar Spine: thoracic and lumbar spine normal to inspection (NTP) Pelvis: no pain with anterior-posterior compression Other: Arms and legs are all atraumatic and nontender to palpation with full range of motion, scapula and clavicles the same Skin General skin exam: no rashes or lesions noted and other (pink, warm, dry; no bruising or lacerations evident) Neuro General: patient alert, patient awake and patient oriented x3 Speech: speech normal Motor: other (LUONG) Sensory Exam: no sensory deficits noted Extrem General: normal to inspection, full ROM and pedal edema present Psych Mental Status: mental status grossly normal Speech and Movement: speech and movement normal Affect: normal affect Course Vital Signs Vital signs: Vital Signs Temperature 36.1 C L 12/12/22 13:28 Pulse 92 H 12/12/22 13:28 Respiratory Rate 18 12/12/22 13:28 Blood Pressure 163/103 H 12/12/22 13:28 Pulse Oximetry 98 12/12/22 13:28 Temperature 36.1 C L 12/12/22 13:28 Temperature Source Tympanic 12/12/22 13:28 Pulse 92 H 12/12/22 13:28 Respiratory Rate 18 12/12/22 13:28 Respiratory Effort Normal, Non-Labored 12/12/22 14:17 Respiratory Depth Normal 12/12/22 14:17 Respiratory Pattern Normal 12/12/22 14:17 Blood Pressure 163/103 H 12/12/22 13:28 Blood Pressure Position Sitting 12/12/22 13:28 Pulse Oximetry 98 12/12/22 13:28 Oxygen Delivery Method Room Air 12/12/22 13:28 Oxygen Flow Rate 0 12/12/22 13:28 Pain Level 8 12/12/22 14:17 Comment has not taken BP pills x2 days 12/12/22 13:28 Lab/Test Results Lab/Test Results: EKG: NSR at 80, LAE, left anterior hemiblock, no change versus 11/13/2021 CXR w/Ribs: Exam(s) XR RIBS LT W PA ? LAT CHEST EXAM:? XR RIBS LT W PA ? LAT CHEST CLINICAL HISTORY: ? Fall, mid L rib pain, poor historian. ? TECHNIQUE:? 2D digital imaging was performed. COMPARISON:? No exams were available for comparison FINDINGS: Total 6 views: Left ribs-four views: There is a fracture of the left 3rd rib .? There is an acute appearing fracture of the left 5th rib.? Possible also fracture of the adjacent left 6th rib. Chest x-ray-two views: Heart size normal.? Mediastinum not widened.? No infiltrates nor pleural effusions.? No lung contusion.? No pneumothorax. IMPRESSION: Left rib fractures as described above.? Fractures involve the left 3rd and 5th ribs as well as possible other less easily visualize. Lungs are clear and there is no pneumothorax evident at this time. Labs reviewed and are pretty overall unremarkable.
--- NOTE | 2022-12-12 14:48 | DI.RAD_ITS ---
Exam(s) XR RIBS LT W PA LAT CHEST EXAM: XR RIBS LT W PA LAT CHEST CLINICAL HISTORY: Fall, mid L rib pain, poor historian. TECHNIQUE: 2D digital imaging was performed. COMPARISON: No exams were available for comparison FINDINGS: Total 6 views: Left ribs-four views: There is a fracture of the left 3rd rib . There is an acute appearing fracture of the left 5th rib. Possible also fracture of the adjacent left 6th rib. Chest x-ray-two views: Heart size normal. Mediastinum not widened. No infiltrates nor pleural effus ions. No lung contusion. No pneumothorax. IMPRESSION: Left rib fractures as described above. Fractures involve the left 3rd and 5th ribs as well as possib le other less easily visualize. Lungs are clear and there is no pneumothorax evident at this time. DATA REPOSITORY: RADIATION DOSE DELIVERED:
[2022-12-12 15:18] LABS: HCT 47.7 % (40.0-50.0); MCH 32.7 pg (27.0-33.0); MCHC 33.5 % (32.0-36.0); MCV 98 fL (80-95); MPV 8.8 fL (8.0-11.0); Platelet Count 413 10^3/uL (130-400); RBC 4.89 10^6/uL (4.36-5.78); RDW 12.5 % (11.8-14.1); RDW-SD 44.9 fL; WBC 11.46 10^3/uL (4.4-10.8)
--- NOTE | 2022-12-12 15:20 | DI.VRAD_ITS ---
PROCEDURE INFORMATION: Exam: XR Left Ribs Exam date and time: 12/12/2022 2:39 PM Age: 77 years old Clinical indication: Injury or trauma; Blunt trauma (contusions or hematomas); Rib area, left side; Injury details: Fall. Anterior rib pain TECHNIQUE: Imaging protocol: Radiologic exam of the left ribs. Views: 2 views. COMPARISON: CT ABDOMEN PELVIS W 11/13/2021 5:46 AM. No previous chest or rib series is available. FINDINGS: Bones/joints: There is slightly decreased bone mineralization overall. There are some left rib fractures present including of the 3rd rib posteriorly as well as subtle undulation anterolaterally. There is also some nondisplaced rib fracture appearance including anterolaterally at approximately the 4th and 5th levels. There is some subtle rib undulation although no displaced fracture is appreciated of the dedicated skin marker site. There does appear to be some nondisplaced fracture at approximately the 8th rib level posterolaterally. Soft tissues: No radiopaque foreign body or subcutaneous emphysema is appreciated. There is a skin marker provided. IMPRESSION: There are several nondisplaced left rib fractures. No underlying pneumothorax or subcutaneous emphysema is appreciated. PROCEDURE INFORMATION: Exam: XR Chest two views Exam date and time: 12/12/2022 2:39 PM Age: 77 years old Clinical indication: Injury or trauma; Blunt trauma (contusions or hematomas); Rib area, left side; Injury details: Fall. Anterior rib pain TECHNIQUE: Imaging protocol: Radiologic exam of the chest. 6image(s) are provided. Views: 2 views. COMPARISON: CT ABDOMEN PELVIS W 11/13/2021 5:46 AM. No previous chest radiograph or CT is available. FINDINGS: Lungs: There is linear subsegmental atelectasis versus post inflammatory scarring demonstrated.No lobar consolidation is appreciated. Pleural spaces: There is some marginal costophrenic angle blunting. No pneumothorax is appreciated. Heart/Mediastinum: The cardiomediastinal silhouette is upper normal in size.This can be seen with central averaging as well as tiffany enlargement.No cardiac decompensation is appreciated. Diaphragm: The hemidiaphragms are symmetric. Bones/joints: There is slightly decreased bone mineralization overall. There are left rib fractures corresponding with the rib series description. Soft tissues: No radiopaque foreign body or subcutaneous emphysema is appreciated. Upper abdominal surgical clips are appreciated. IMPRESSION: No lobar consolidation is appreciated.No interval acute cardiopulmonary changes are appreciated. Dictated and Authenticated by: Lew Cortez MD. Ordering:JOSE Florez MD
[2022-12-12 15:34] LABS: ALT 23 U/L (16-63); AST 20 U/L (15-37); Albumin 3.8 g/dL (3.4-5.0); Alkaline Phosphatase 133 U/L (46-116); Anion Gap 9.6 mmol/L (3-11); BUN 10 mg/dL (7-18); Bilirubin, Total 0.7 mg/dL (0.2-1.0); CO2 26.4 mmol/L (21.0-32.0); Calcium 8.8 mg/dL (8.5-10.1); Chloride 98 mmol/L (98-107); Glucose 98 mg/dL (74-106); Potassium 3.8 mmol/L (3.5-5.1); Sodium 134 mmol/L (136-145); Total Protein 8.4 g/dL (6.4-8.2)
[2022-12-12 15:48] LABS: Troponin I < 50 ng/L (<or=60)
[2022-12-12 15:58] VITALS: BP 147/87; PULSE 84; RESP 18; O2SAT 97
== END 2022-12-12 15:59 | disposition home or self-care (01) ==
PROVIDERS: Emergency Provider Emergency Medicine
DX: S22.42XA Multiple fractures of ribs, left side, initial encounter for closed fracture (principal); W07.XXXA Fall from chair, initial encounter; R07.9 Chest pain, unspecified
CPT/HCPCS: 80053; 85027; 93005; 99284; 71046; 71100; 84484; 93010

== ENCOUNTER 2022-12-14 08:55 | Emergency (ER) | payer OTHER, SELFPAY ==
[2022-12-14 09:03] VITALS: BP 139/94; PULSE 95; RESP 18; O2SAT 97
--- NOTE | 2022-12-14 09:04 | ED.GENADUL_ITS ---
Discharge Plan Discharge Details Chief Complaint: Chest/Rib Clinical Impression: Multiple fractures of ribs of left side, Thrombocytosis, Leukocytosis Primary Care Provider: None,None ED Provider: Brayden Colunga Home Meds and New Rx's Prescriptions: New lidocaine [Lidoderm] 5 % adhesive patch,medicated 1 patch topical DAILY Qty: 15 0RF Rx Instructions: leave on most painful area for up to 12 hrs oxycodone 5 mg tablet 5 mg PO Q8H PRNQty: 3 0RF Continued multivitamin Tablet 1 tab PO DAILY lisinopril 5 mg tablet 10 mg PO DAILY Patient Comments: TAKE ONE TABLET BY MOUTH EVERY DAY FOR BLOOD PRESSURE Discharge Instructions Instructions: Rib Fracture (ED) Additional Instructions: Please read all of the information that accompanies these instructions. You were seen in the emergency department for your rib fractures. Your x-ray showed no sign of any pneumonia. Please schedule an appointment with your primary care provider later this week. Please return to the emergency department if develop worsening shortness of breath or pneumonia. For your pain please take medications as follows: 1. Take acetaminophen (Tylenol), 1,000 mg (two 500 mg tabs) every 6 hours 2. Take ibuprofen (Advil), 208 mg every 8 hours. You are also receiving a prescription for opiate medications which you should take as directed. These can cause constipation. Please use a stool softener while taking these medications such as MiraLAX. Please do not operate machinery or drive a vehicle or drink alcohol while taking opiates. Discharge Data Discharge Date/Time-TO BE ENTERED AT DEPARTURE: 12/14/22 11:21 Medical Decision Making This is an overall well-appearing normothermic and not tachycardic 77-year-old male with fall 3 days ago and multiple left-sided rib fractures now with worsening concerning for oligoanalgesia. No fevers to suggest pneumonia and patient is not hypoxic however we will repeat a chest x-ray given his productive cough. No recurrent trauma to suggest pneumothorax. No nausea nor vomiting to suggest intra-abdominal process. No dysuria nor frequency to suggest UTI. Will check acetaminophen level as patient reportedly has been taking 1 g of acetaminophen every 2 hours overnight. He is a daily alcohol drinker but denies history of withdrawal. No thoracic, nor lumbar spinal tenderness to suggest benefit from cross-sectional imaging. He is not a smoker so despite his age suspect that he will have some pulmonary reserve. We will recheck an incentive spirometry although patient reports that he has been adherent with this treatment at home. We will treat with Lidoderm patch and oxycodone. Creatinine 2 days ago was 1.0. Will treat with 200 mg of ibuprofen once renal function has returned. Will obtain venous blood gas to assess for hypercarbia and acidemia. 10 AM Venous blood gas with no acidemia nor hypercarbia. 10:12 AM CBC with leukocytosis no anemia and thrombocytosis. Compared to prior leukocytosis is more pronounced as his thrombocytosis. Patient was able to pull 2000 cc on incentive spirometry. 10:45 AM Reassuring comprehensive metabolic panel with no KYUNG. Negative acetaminophen level. 10:55 AM I met with patient and he was able to pull 2000 cc on incentive telemetry. He reported that this pain was persistent. I offered hospitalization for IV analgesia given patient's return visit to the ED. He declined. We will send a short course of oxycodone to his pharmacy. I counseled against drinking alcohol and driving motor vehicles while taking oxycodone. I also advised that oxycodone could cause constipation. I have advised ED return if he develops any shortness of breath fevers or any worsening pain. We will review PDMP. Patient had no opiate or benzodiazepine prescriptions in his PDMP record. Patient did not have any primary care provider. I have asked health community planning technician Prem to have case management follow-up with patient to arrange for PCP and have patient reassessed in the next week. HPI General Date/Time Provider Initiated Documentation: 12/14/22 09:02 . HPI Narrative: This is a 77-year-old male who was seen in the emergency department 2 days ago following a fall 3 nights ago getting up to urinate. He was diagnosed with multiple closed left-sided rib fractures. He was sent home with incentive spirometry. He reports having had a cold prior to his fall. He has had worsening pain which led him to come to the emergency department. To manage his pain at home he has been taking acetaminophen, 1 g every 2 hours overnight with his last dose at 6 AM. He has not had any recurrent falls. He is not a smoker. He drinks alcohol every day but has no history of alcohol withdrawal. He has not had any fevers nausea vomiting nor any shortness of breath. His cough is mildly productive. Related Data Home Medications Medication Instructions Recorded Confirmed multivitamin 1 tab PO DAILY 11/13/21 12/14/22 lisinopril 5 mg tablet 10 mg PO DAILY 12/12/22 12/14/22 lidocaine 5 % topical patch 1 patch topical DAILY #15 ea 12/14/22 (Lidoderm) oxycodone 5 mg tablet 5 mg PO Q8H PRN #3 tabs 12/14/22 Previous Rx's Medication Instructions Recorded lidocaine 5 % topical patch 1 patch topical DAILY #15 ea 12/14/22 (Lidoderm) oxycodone 5 mg tablet 5 mg PO Q8H PRN #3 tabs 12/14/22 Allergies Allergy/AdvReac Type Severity Reaction Status Date / Time No Known Allergies Allergy Unverified 12/14/22 09:07 General SARAH: 3 PFSH All Active Problems (Updated 12/14/22 @ 10:14 by Brayden Colunga MD) Multiple rib fractures (Acute) Multiple fractures of ribs of left side (Acute) Thrombocytosis (Acute) Leukocytosis (Acute) Acute cholecystitis (Acute) Medical History No significant past medical history Surgical History Lipoma Resection L chest Social History Smoking/Tobacco Use Status: Never Smoking risk assessment performed?: Yes Alcohol Intake: current Alcohol Intake frequency: 0-2 drinks per day Alcohol type: beer Drug use: Never Substance use type: does not use Do you feel safe at home: Yes Exam Narrative Exam Narrative: General: Well-appearing in no acute distress speaking in complete sentences. Head: Normocephalic, atraumatic. Eye: Pupils equal, round reactive to light. Extraocular eye movements intact. No conjunctival injection. No scleral icterus. Ear, nose, mouth, throat: Grossly normal inspection. Normal voice, handling secretions normally. Neck: Trachea midline. Cardiovascular: Well-perfused distal extremities. Respiratory: Nonlabored respiration. Clear breath sounds bilaterally. Back: No midline cervical nor thoracic spinal tenderness. Chest wall: Left left-sided ecchymoses on chest wall. No flail segments. Gastrointestinal: Nondistended abdomen. Musculoskeletal: No edema. Moving all 4 extremities spontaneously. Skin: Normal for age and race, grossly normal temperature and turgor. No acute rash. Neurologic: Alert and appropriate, no apparent acute deficits. Psychiatric: Mood and manner are appropriate. Grooming and personal hygiene are appropriate.
--- NOTE | 2022-12-14 09:15 | DI.RAD_ITS ---
Exam(s) XR CHEST 2V PA LATERAL EXAM: XR CHEST 2V PA LATERAL CLINICAL HISTORY: Rib fractures. TECHNIQUE: 2D digital imaging was performed. COMPARISON: CR,XR XR RIBS LT W PA LAT CHEST from 12/12/2022 FINDINGS: 2 views: Heart size is normal. The mediastinum is not widened. Lungs are clear. No infiltrates nor pleural effusions. IMPRESSION: No acute pulmonary findings. DATA REPOSITORY: RADIATION DOSE DELIVERED:
[2022-12-14 09:57] VITALS: TEMP 36.7
[2022-12-14 10:00] LABS: BE (Venous) 5 mmol/L (-2-3); HCO3 (Venous) 30 mmol/L (23-28); O2 Sat (Venous) 57 %; TCO2 (Venous) 26 mmol/L (24-29); pCO2 (Venous) 48 mmHg (41-51); pO2 (Venous) 30 mmHg
[2022-12-14] MEDS: oxyCODONE 5 MG TAB PO (10:00)
[2022-12-14] MEDS: Lidocaine 5% Patch 2 PATCH TP (10:01)
[2022-12-14 10:02] LABS: Abs Immature Grans 0.07 10^3/uL (0.0-0.06); Absolute Basophil Count 0.03 10^3/uL (0.0-0.2); Absolute Monocyte Count 1.12 10^3/uL (0.1-0.8); Absolute Neutrophil Count 10.19 10^3/uL (1.2-6.7); Basophils % 0.2; Eosinophils % 0.2; HCT 47.8 % (40.0-50.0); HGB 15.9 g/dL (13.5-17.5); Immature Grans % 0.5; Lymphocytes % 10.4; MCH 32.4 pg (27.0-33.0); MCHC 33.3 % (32.0-36.0); MCV 97 fL (80-95); MPV 8.7 fL (8.0-11.0); Monocytes % 8.8; Neutrophils % 79.9; Platelet Count 447 10^3/uL (130-400); RBC 4.91 10^6/uL (4.36-5.78); RDW 12.7 % (11.8-14.1); RDW-SD 45.4 fL; WBC 12.75 10^3/uL (4.4-10.8)
[2022-12-14 10:05] LABS: Absolute Eosinophil Count 0.03 10^3/uL (0.0-0.7); Absolute Lymphocyte Count 1.33 10^3/uL (1.2-3.4)
[2022-12-14 10:27] LABS: ALT 31 U/L (16-63); AST 19 U/L (15-37); Albumin 3.5 g/dL (3.4-5.0); Alkaline Phosphatase 114 U/L (46-116); Anion Gap 6.6 mmol/L (3-11); BUN 12 mg/dL (7-18); Bilirubin, Total 0.5 mg/dL (0.2-1.0); CO2 30.4 mmol/L (21.0-32.0); CREATININE 1.2 mg/dL (0.70-1.30); Chloride 100 mmol/L (98-107); Estimated GFR 62.67 (mL/min/1.73m2); Glucose 137 mg/dL (74-106); Potassium 3.9 mmol/L (3.5-5.1); Sodium 137 mmol/L (136-145); Total Protein 8.1 g/dL (6.4-8.2)
[2022-12-14 10:35] LABS: Acetaminophen < 2 ug/mL (10-30)
[2022-12-14] MEDS: Ibuprofen 200 MG TAB PO (11:01)
== END 2022-12-14 11:21 ==
PROVIDERS: Emergency Provider Emergency Medicine
DX: S22.42XA Multiple fractures of ribs, left side, initial encounter for closed fracture (principal); X58.XXXA Exposure to other specified factors, initial encounter; D75.839 Thrombocytosis, unspecified; D72.829 Elevated white blood cell count, unspecified
CPT/HCPCS: 80053; 82805; 99283; 71046; 80329; 85025; 99284